=== PATIENT | female | born 1980 | race Caucasian/White ===

== ENCOUNTER 2023-01-08 13:14 | Emergency (ER) | payer MEDICAID ==
[~2023-01-08] VITALS: Ht 167.6 cm; Wt 61.0 kg
[2023-01-08 13:20] VITALS: BP 138/68
[2023-01-08] MEDS ORDERED: ACETAMINOPHEN 500MG TABLET PO ONE (14:45)
[2023-01-08] MEDS ORDERED: DIPHENHYDRAMINE 25MG CAPSULE PO ONE (14:45)
[2023-01-08] MEDS ORDERED: PREDNISONE 20MG TABLET PO ONE (14:45)
[2023-01-08] MEDS ORDERED: P50 MT (14:46)
[2023-01-08] MEDS ORDERED: ACET-2708 MT (14:46)
[2023-01-08] MEDS ORDERED: DIPH25CA83 MT (14:46)
[2023-01-08] MEDS ORDERED: PERM60CR4 TP (14:46)
== END 2023-01-08 15:02 | disposition home or self-care (01) ==
LOC: ER 13:33
DX: R21 Rash and other nonspecific skin eruption (principal)
CPT/HCPCS: 99284; J7512; Q0163